=== PATIENT | male | born 1975 | race Caucasian/White ===

== ENCOUNTER → 2017-05-12 | Outpatient (CLI) | payer BC, OTHER ==
--- NOTE | 2017-05-12 11:46 | RADIOLOGY REPORT (SQ) ---
EXAM DESCRIPTION: BARIUM SWALLOW ESOPHAGUS COMPLETED DATE/TIME: 05/12/2017 9:31 am REASON FOR STUDY: DYSPHAGIA R13.12 DYSPHAGIA, OROPHARYNGEAL PHASE COMPARISON: None. TECHNIQUE: Under fluoroscopic guidance, patient ingested effervescent granules followed by thick and thin barium. Fluoroscopic spot images and routine radiographic images acquired and stored on PACS. 12 MM BARIUM TABLET GIVEN: Yes. No significant delay in passage. LIMITATIONS: None. FLUOROSCOPY TIME: FLUORO TIME: 1 minutes 17 seconds 5 series of digital images saved to PACS. FINDINGS: NEUROMUSCULAR COORDINATION OF SWALLOW: Normal. No aspiration. ESOPHAGEAL MOTILITY: Normal peristalsis. No esophageal spasm. ESOPHAGEAL MUCOSA: Very mild distal esophageal mucosal irregularity. Distal esophagitis for Gonzalez' s esophagus could not be excluded. GASTRO-ESOPHAGEAL JUNCTION: There is a small sliding hiatal hernia. Early Schatzki's ring formation. This did not impede passage of the 12 mm barium tablet. There was unprovoked gastroesophageal refl ux to the cervical esophagus NON-GI TRACT STRUCTURES: No significant finding. OTHER: No other significant finding. IMPRESSION: Small hiatal hernia with unprovoked gastroesophageal reflux to the cervical esophagus. No distal esophageal stricture. Mild distal esophageal mucosal irregularity COMMENT: Quality ID [id number]: Final reports for procedures using fluoroscopy that document radiation exp osure indices, or exposure time and number of fluorographic images (if radiation exposure indices are not available) TECHNICAL DOCUMENTATION: JOB ID: [id number] [employer]- All Rights Reserved
== END ==
LOC: RAD 09:05
PROVIDERS: ATTEND Family Medicine
DX: K21.9 Gastro-esophageal reflux disease without esophagitis (principal); K44.9 Diaphragmatic hernia without obstruction or gangrene; R13.12 Dysphagia, oropharyngeal phase
CPT/HCPCS: 74220

== ENCOUNTER → 2020-02-21 | Outpatient (CLI) | payer OTHER ==
[2020-02-21 12:33] LABS: ABSOLUTE EOSINOPHILS # (AUTO) 0.1 10^3/uL (0.0-0.6); ABSOLUTE MONOCYTES (AUTO) 0.7 10^3/uL (0.1-1.4); ABSOLUTE NEUT (AUTO) 7.5 10^3/uL (1.7-8.2); BASOPHILS % (AUTO) 0.3 % (0-2); EOSINOPHILS % (AUTO) 0.9 % (0-6); HEMATOCRIT 36.8 % (37.9-51.0); HEMOGLOBIN 12.6 g/dL (13.5-17.0); LYMPHOCYTES % (AUTO) 19.3 % (13-45); MEAN CORPUSCULAR HEMOGLOBIN 28.7 pg (27.0-33.4); MEAN CORPUSCULAR HGB CONC 34.4 g/dL (32.0-36.0); MEAN CORPUSCULAR VOLUME 83 fl (80-97); MONOCYTES % (AUTO) 6.5 % (3-13); PLATELET COUNT 170 10^3/uL (150-450); RED BLOOD COUNT 4.41 10^6/uL (4.35-5.55); RED CELL DISTRIBUTION WIDTH 14.9 % (11.5-14.0); TOTAL CELLS COUNTED % (AUTO) 100 %; WHITE BLOOD COUNT 10.3 10^3/uL (4.0-10.5)
[2020-02-21 12:54] LABS: ALBUMIN 4.3 g/dL (3.5-5.0); ALKALINE PHOSPHATASE 54 U/L (38-126); ANION GAP 7 (5-19); ASPARTATE AMINO TRANSFERASE 22 U/L (17-59); BILIRUBIN,TOTAL 0.7 mg/dL (0.2-1.3); BLOOD UREA NITROGEN 29 mg/dL (7-20); CALCIUM 8.8 mg/dL (8.4-10.2); CARBON DIOXIDE 25 mmol/L (22-30); CHLORIDE 99 mmol/L (98-107); GLUCOSE 101 mg/dL (75-110); POTASSIUM 4.3 mmol/L (3.6-5.0); TOTAL PROTEIN 6.6 g/dL (6.3-8.2)
== END ==
LOC: OD 11:25
PROVIDERS: ATTEND Family Medicine
DX: I10 Essential (primary) hypertension (principal); K92.1 Melena
CPT/HCPCS: 36415; 80053; 85025

== ENCOUNTER 2020-03-17 03:09 | Emergency (ER) | payer OTHER ==
--- NOTE | 2020-03-17 03:33 | ER Document Report ---
ED General Pain - General Chief Complaint: Anemia Stated Complaint: BODY ACHES Time Seen by Provider: 03/17/20 03:26 Primary Care Provider: LADY CASTRO MD [Primary Care Provider] - Follow up as needed Mode of Arrival: Ambulatory Information source: Patient Notes: 03/17/20 03:17 - ED Nursing Note by TATUM CONNER Num: [id number] : 1975 Patient Age: 44 3 wks ago pt had salmonella and is still tired, fatigued. no fever/chills. pt is anemic. my notes 44-year-old male arrives by POV after having 3 weeks of weakness. 3 weeks ago he ate some garnish [employer] Fresh lettuce from [email or web address] that had Salmonella warnings with later recall and began to have abdominal cramps with dark and bloody stools x 4 days with hematemesis vomiting and his H&H went from a high level to 8 within [address] Castro for this. 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 He reports when he tries to walk more than 10 feet he becomes short of breath. He also has been having more headaches. He also has been complaining of left trapezial pain pointing to this area as well as neck and left shoulder pain and multiple joint aches. He has never had any chlamydia or Lauren's syndrome in the past. TRAVEL OUTSIDE OF THE [place] IN LAST 30 DAYS: No - HPI Onset: Other - x 3 weeks Onset/Duration: Gradual, Persistent, Worse Quality of pain: Achy Severity: Moderate Pain Level: 3 Context: New onset, Joint pain, Recent illness - Related Data Allergies/Adverse Reactions: No Known Allergies Allergy (Verified 03/17/20 03:38) Home Medications: HCTZ/lisinopril, omeprazole, iron Past Medical History - General Information source: Patient - Social History Smoking Status: Never Smoker Cigarette use (# per day): No Chew tobacco use (# tins/day): No Smoking Education Provided: No Frequency of alcohol use: Occasional Drug Abuse: None Lives with: Family Family History: Reviewed & Not Pertinent Patient has suicidal ideation: No Patient has homicidal ideation: No Review of Systems - Review of Systems Constitutional: See HPI, Malaise, Weakness, Recent illness EENT: No symptoms reported Cardiovascular: No symptoms reported Respiratory: No symptoms reported Gastrointestinal: See HPI, Abdominal pain Genitourinary: No symptoms reported Male Genitourinary: No symptoms reported Musculoskeletal: See HPI, Back pain, Joint pain Skin: No symptoms reported Hematologic/Lymphatic: No symptoms reported Physical Exam - Vital signs Vitals: Temp Pulse Resp BP Pulse Ox 98.1 F 72 16 142/84 H 99 03/17/20 03:21 03/17/20 03:21 03/17/20 03:21 03/17/20 03:21 03/17/20 03:21 Interpretation: Normal - HEENT Head: Normocephalic, Atraumatic Eyes: Normal Pupils: PERRL Pharynx: Normal Neck: Normal - Respiratory Respiratory status: No respiratory distress Chest status: Nontender Breath sounds: Normal Chest palpation: Normal - Cardiovascular Rhythm: Regular Heart sounds: Normal auscultation Murmur: No - Abdominal Inspection: Normal Distension: No distension Bowel sounds: Normal Tenderness: Nontender Organomegaly: Splenomegaly - Rectal Prostate: Other - deferred - Genitourinary Scrotum: Other - deferred - Back Back: Tender - LS area - Extremities General upper extremity: Normal inspection - Neurological Neuro grossly intact: Yes Cognition: Normal Orientation: AAOx4 Shena Coma Scale Eye Opening: Spontaneous Shena Coma Scale Verbal: Oriented [place] Coma Scale Motor: Obeys Commands [place] Coma Scale Total: 15 Speech: Normal Motor strength normal: LUE, RUE, LLE, RLE Sensory: Normal - Psychological Associated symptoms: Normal affect - Skin Skin Temperature: Warm Skin Moisture: Dry Course - Vital Signs Vital signs: Temp Pulse Resp BP Pulse Ox 98.1 F 72 16 142/84 H 99 03/17/20 03:21 03/17/20 03:21 03/17/20 03:21 03/17/20 03:21 03/17/20 03:21 - Laboratory Result Diagrams: 03/17/20 04:42 03/17/20 03:37 Laboratory results interpreted by me: 03/17/20 03/17/20 03:37 04:42 RBC 3.66 L Hgb 10.6 L Hct 31.7 L RDW 18.2 H Plt Count 131 L Monocytes % (Manual) 2 L Basophils % (Manual) 5 H Abs Basophils (Manual) 0.3 H Sodium 134.5 L BUN 21 H Discharge - Discharge Clinical Impression: Splenomegaly, Reactive arthritis, s/p gi bleed, Solitary pulmonary nodule on lung CT Joint pain Qualifiers: Joint pain location: hip Laterality: bilateral Qualified Code(s): M25.551 - Pain in right hip; M25.552 - Pain in left hip Condition: Good Disposition: HOME, SELF-CARE Additional Instructions: Follow-up with hematology oncology Dr. Pena return to ER as needed take medicines as directed encourage fluids; Prescriptions: Misoprostol [Cytotec 0.2 mg Tablet] 200 mcg PO DAILY #10 tablet Levofloxacin [Levaquin 500 mg Tablet] 500 mg PO DAILY #10 tablet Etodolac [Lodine] 400 mg PO DAILY #7 tablet Referrals: LADY CASTRO MD [Primary Care Provider] - Follow up as needed
[2020-03-17] MEDS ORDERED: NORMAL SALINE 1000 ML 1,000 ML IV ONE (03:35)
[2020-03-17 03:56] LABS: PARTIAL THROMBOPLASTIN TIME 28.3 SEC (23.5-35.8); PROTHROMBIN TIME 13.4 SEC (11.4-15.4)
[2020-03-17 04:09] LABS: ALBUMIN 4.3 g/dL (3.5-5.0); ALKALINE PHOSPHATASE 53 U/L (38-126); ANION GAP 10 (5-19); ASPARTATE AMINO TRANSFERASE 28 U/L (17-59); BILIRUBIN,TOTAL 0.4 mg/dL (0.2-1.3); BLOOD UREA NITROGEN 21 mg/dL (7-20); CALCIUM 8.8 mg/dL (8.4-10.2); CARBON DIOXIDE 24 mmol/L (22-30); CHLORIDE 101 mmol/L (98-107); CREATINE KINASE 61 U/L (55-170); GLUCOSE 101 mg/dL (75-110); POTASSIUM 4.4 mmol/L (3.6-5.0); TOTAL PROTEIN 6.8 g/dL (6.3-8.2)
--- NOTE | 2020-03-17 04:15 | RADIOLOGY REPORT (SQ) ---
EXAM DESCRIPTION: XR CHEST 1 VIEW COMPLETED DATE/TME: 03/17/2020 03:32 CLINICAL HISTORY: 44 years, Male, gi bleed abd pain COMPARISON: None. NUMBER OF VIEWS: 1 TECHNIQUE: Portable chest LIMITATIONS: None. FINDINGS: The heart size is normal. Elevation of the right hemidiaphragm. Lungs are clear. No pneumothorax IMPRESSION: Negative chest copyright 2011 [employer]- All Rights Reserved
[2020-03-17 04:59] LABS: HEMATOCRIT 31.7 % (37.9-51.0); HEMOGLOBIN 10.6 g/dL (13.5-17.0); MEAN CORPUSCULAR HEMOGLOBIN 28.8 pg (27.0-33.4); MEAN CORPUSCULAR HGB CONC 33.3 g/dL (32.0-36.0); PLATELET COUNT 131 10^3/uL (150-450); RED BLOOD COUNT 3.66 10^6/uL (4.35-5.55); RED CELL DISTRIBUTION WIDTH 18.2 % (11.5-14.0); WHITE BLOOD COUNT 6.1 10^3/uL (4.0-10.5)
[2020-03-17] MEDS ORDERED: LEVOFLOXACIN 750 MG/D5W RTU 750 MG/150 ML RTUPB IV ONE (05:02)
--- NOTE | 2020-03-17 05:14 | RADIOLOGY REPORT (SQ) ---
EXAM DESCRIPTION: CT ABDOMEN PELVIS WITH IV CONTRAST COMPLETED DATE/TME: 03/17/2020 03:30 CLINICAL HISTORY: abd back pain gi bleed COMPARISON: None Available. TECHNIQUE: CT of the abdomen and pelvis performed following IV administration of 91 mL Omnipaque 350. FINDINGS: Lung Bases: There is a 5 mm solid pulmonary nodule in the right lower lobe best seen on image #22, series #3. Bones: No destructive bone lesions identified. Abdomen: Liver: The liver has normal size and density. No intrahepatic biliary dilatation. Gallbladder: No calcified gallstones. Spleen, Pancreas, and Adrenal Glands: Splenomegaly. Pancreas and adrenal glands are unremarkable. Kidneys: No hydronephrosis or obstructing calculus. Vasculature: The aorta and IVC have normal caliber and position. The portal vein is patent. The proximal visceral and renal arteries are patent. Stomach: The stomach and duodenum have normal course. Other: No free intraperitoneal air. No free fluid or lymphadenopathy. Pelvis: Bladder: Urinary bladder is unremarkable. Bowel: No dilated loops of large or small bowel. Appendix: Normal appendix. Pelvis: Prostate is not enlarged. Small bilateral fat-containing inguinal hernias. IMPRESSION: 1. No acute inflammatory or obstructive process identified. 2. Splenomegaly. 3. 5.0 mm solid pulmonary nodule detected on incomplete chest CT. No routine follow-up imaging is recommended. These guidelines do not apply to immunocompromised patients and patients with cancer. Follow up in patients with significant comorbidities as clinically warranted. For lung cancer screening, adhere to Lung-RADS guidelines. Reference: Radiology. 2017; 284(1):228-43. This exam was performed according to our departmental dose-optimization program, which includes automated exposure control, adjustment of the mA and/or kV according to patient size and/or use of iterative reconstruction technique.
[2020-03-17 05:18] LABS: MEAN CORPUSCULAR VOLUME 87 fl (80-97)
[2020-03-17 05:21] LABS: ABSOLUTE LYMPHOCYTES# (MANUAL) 1.4 10^3/uL (0.5-4.7); ABSOLUTE MONOCYTES # (MANUAL) 0.1 10^3/uL (0.1-1.4); BASOPHILS % (MANUAL) 5 % (0-2); EOSINOPHILS % (MANUAL) 0 % (0-6); LYMPHOCYTES % (MANUAL) 23 % (13-45); MONOCYTES % (MANUAL) 2 % (3-13); NUCLEATED RED BLOOD CELLS 1 /100 WBC (0); SEGMENTED NEUTROPHILS % (MAN) 70 % (42-78); TOTAL CELLS COUNTED 100
[2020-03-17 05:22] LABS: ANISOCYTOSIS 1+; OVALOCYTES 1+; POIKILOCYTOSIS 1+; TEAR DROP CELLS 1+; TOXIC GRANULATION SLIGHT
[2020-03-17 05:23] LABS: PLATELET COMMENT ADEQUATE
[2020-03-17 06:15] VITALS: BP 136/85
[2020-03-17] MEDS ORDERED: LEVOFLOXACIN 500 MG/D5W RTU 500 MG/100 ML RTUPB IV SCH (10:00)
== END 2020-03-17 06:39 | disposition home or self-care (01) ==
LOC: ER 03:09
DX: M02.30 Reiter's disease, unspecified site (principal); R91.1 Solitary pulmonary nodule; M25.551 Pain in right hip; M25.552 Pain in left hip; R16.1 Splenomegaly, not elsewhere classified; D64.9 Anemia, unspecified; R53.1 Weakness; R53.83 Other fatigue; M54.5 Low back pain; R06.02 Shortness of breath; R51 Headache; M79.18 Myalgia, other site; M54.2 Cervicalgia; M25.512 Pain in left shoulder; Z79.899 Other long term (current) drug therapy; R53.81 Other malaise; R10.9 Unspecified abdominal pain; Z87.19 Personal history of other diseases of the digestive system
CPT/HCPCS: 99285; 96361; 96374; 96375; 36415; 87040; 82550; 83605; 84443; 85025; 85610; 85730; 86431; 86308; 80053; 84484; 71045; 74177; J7030; J1956

== ENCOUNTER 2020-03-23 16:33 | Emergency (ER) | payer OTHER ==
[2020-03-23] MEDS ORDERED: NORMAL SALINE 1000 ML 1,000 ML IV ONE (17:00)
--- NOTE | 2020-03-23 17:05 | ER Document Report ---
ED General - General Stated Complaint: SYNCOPE Primary Care Provider: LADY PLATA MD [Primary Care Provider] - Follow up as needed Mode of Arrival: Ambulatory Information source: Patient Notes: 44-year-old male arrives by POV with his Tamy with chief complaint of myalgias and syncope while at work today. Patient's hemoglobin is 13 today. A few weeks ago it was an 8 after he had bloody diarrhea after consuming farm fresh lettuce from [employer] associated with Salmonella. He saw his personal doctor Dr. Plata and he was placed on iron by mouth. He has been suffering from diffuse myalgias and difficulty walking. Patient is diaphoretic upon arrival to waiting room. Patient reports when he arises from sitting position it is very difficult for him to begin walking and has some numbness of his feet. He has never had any [place] in the past. He no longer has headaches like he had a few weeks ago but continues to have arthralgias. I discussed this case with Dr. Plata at 1928 and he advises following up in the office. Also advises waiting for the coronavirus test to result as well. TRAVEL OUTSIDE OF THE [place] IN LAST 30 DAYS: No - HPI Onset: Just prior to arrival - Related Data Allergies/Adverse Reactions: No Known Allergies Allergy (Verified 03/23/20 19:22) Past Medical History - General Information source: Patient, Relative - - Social History Smoking Status: Never Smoker Cigarette use (# per day): No Chew tobacco use (# tins/day): No Smoking Education Provided: No Frequency of alcohol use: None Drug Abuse: None Lives with: Family Family History: Reviewed & Not Pertinent Patient has suicidal ideation: No Patient has homicidal ideation: No - Past Medical History Cardiac Medical History: Reports: Hx Hypertension Review of Systems - Review of Systems Constitutional: See HPI, Diaphoresis, Malaise, Weakness, Recent illness EENT: No symptoms reported Cardiovascular: See HPI, Palpitations Respiratory: No symptoms reported Gastrointestinal: No symptoms reported Genitourinary: No symptoms reported Male Genitourinary: No symptoms reported Musculoskeletal: No symptoms reported Skin: No symptoms reported Hematologic/Lymphatic: No symptoms reported Neurological/Psychological: No symptoms reported Physical Exam - Vital signs Vitals: Temp Pulse Resp BP Pulse Ox 98.2 F 106 H 20 112/69 100 03/23/20 16:39 03/23/20 16:39 03/23/20 16:39 03/23/20 16:39 03/23/20 16:39 Interpretation: Tachycardic - HEENT Head: Normocephalic, Atraumatic Eyes: Normal Pupils: PERRL Pharynx: Normal Neck: Normal - Respiratory Respiratory status: No respiratory distress Chest status: Nontender Breath sounds: Normal Chest palpation: Normal - Cardiovascular Rhythm: Tachycardia Heart sounds: Normal auscultation Murmur: No - Abdominal Inspection: Normal Distension: No distension Bowel sounds: Normal Tenderness: Nontender Organomegaly: No organomegaly - Rectal Prostate: Other - deferred - Genitourinary Scrotum: Other - deferred - Back Back: Normal - Extremities General upper extremity: Normal inspection General lower extremity: Normal inspection - Neurological Neuro grossly intact: Yes Cognition: Normal Orientation: AAOx4 Shena Coma Scale Eye Opening: Spontaneous [place] Coma Scale Verbal: Oriented [place] Coma Scale Motor: Obeys Commands Shena Coma Scale Total: 15 Speech: Normal Motor strength normal: LUE, RUE, LLE, RLE Additional motor exam normals: Weakness - of lower legs pain in macario thighs hamstring area Sensory: Normal Knee - Reflex grade: 0 = Absent - Psychological Associated symptoms: Anxious - Skin Skin Temperature: Warm Skin Moisture: Diaphoretic Course - Vital Signs Vital signs: Temp Pulse Resp BP Pulse Ox 98.2 F 106 H 20 112/69 100 03/23/20 16:39 03/23/20 16:39 03/23/20 16:39 03/23/20 16:39 03/23/20 16:39 - Laboratory Result Diagrams: 03/23/20 17:25 03/23/20 17:25 Laboratory results interpreted by me: 03/23/20 03/23/20 17:25 17:25 Hgb 13.2 L RDW 17.5 H Reticulocyte # 0.153 H Retic Count (auto) 3.31 H Sodium 135.1 L BUN 25 H Iron 48.8 L Vitamin B12 960.0 H Critical Care Note - Critical Care Note Comments: I advised patient of his laboratory reports; and of his ferritin level and reticulocyte count. He has a 13 hemoglobin. I also spoke with Dr. Plata about this patient is patient and he advises he wants to see him in office this week. Discharge - Discharge Clinical Impression: Weakness, Knee reflex reduced, Splenomegaly, Reactive arthritis, Iron deficiency Joint pain Qualifiers: Joint pain location: hip Laterality: bilateral Qualified Code(s): M25.551 - Pain in right hip Disposition: HOME, SELF-CARE Additional Instructions: Follow-up with Dr. Plata this week; wear a facemask to his office; a coronavirus has been done and will need self quarantine until this resulted. Return to ER if symptoms persist. Your hemoglobin level is now at 13 with positive reticulocyte count of 3. You have a 48 iron level Prescriptions: Tramadol HCl [Ultram 50 mg Tablet] 50 mg PO Q4HP PRN #12 tab PRN Reason: Forms: Return to Work Referrals: LADY PLATA MD [Primary Care Provider] - Follow up as needed
[2020-03-23 17:44] LABS: ABSOLUTE BASOPHILS # (AUTO) 0.1 10^3/uL (0.0-0.2); ABSOLUTE EOSINOPHILS # (AUTO) 0.3 10^3/uL (0.0-0.6); ABSOLUTE LYMPHOCYTES (AUTO) 1.4 10^3/uL (0.5-4.7); ABSOLUTE MONOCYTES (AUTO) 0.6 10^3/uL (0.1-1.4); ABSOLUTE NEUT (AUTO) 6.4 10^3/uL (1.7-8.2); ABSOLUTE RETICS # 0.153 10^6/uL (0.028-0.122); BASOPHILS % (AUTO) 0.7 % (0-2); HEMATOCRIT 40.3 % (37.9-51.0); HEMOGLOBIN 13.2 g/dL (13.5-17.0); LYMPHOCYTES % (AUTO) 16.2 % (13-45); MEAN CORPUSCULAR HEMOGLOBIN 28.5 pg (27.0-33.4); MEAN CORPUSCULAR HGB CONC 32.7 g/dL (32.0-36.0); MEAN CORPUSCULAR VOLUME 87 fl (80-97); MONOCYTES % (AUTO) 7.2 % (3-13); PLATELET COUNT 207 10^3/uL (150-450); RED BLOOD COUNT 4.62 10^6/uL (4.35-5.55); RED CELL DISTRIBUTION WIDTH 17.5 % (11.5-14.0); RETICULOCYTE COUNT (AUTO) 3.31 % (0.66-2.85); SEGMENTED NEUTROPHILS % (AUTO) 72.9 % (42-78); TOTAL CELLS COUNTED % (AUTO) 100 %; WHITE BLOOD COUNT 8.8 10^3/uL (4.0-10.5)
[2020-03-23 18:03] LABS: ALBUMIN 4.6 g/dL (3.5-5.0); ALKALINE PHOSPHATASE 53 U/L (38-126); ANION GAP 11 (5-19); ASPARTATE AMINO TRANSFERASE 25 U/L (17-59); BILIRUBIN,TOTAL 0.4 mg/dL (0.2-1.3); BLOOD UREA NITROGEN 25 mg/dL (7-20); CALCIUM 9.4 mg/dL (8.4-10.2); CARBON DIOXIDE 22 mmol/L (22-30); CHLORIDE 102 mmol/L (98-107); CREATINE KINASE 142 U/L (55-170); GLUCOSE 107 mg/dL (75-110); IRON(TIBC) 48.8 ug/dL (49-181); TOTAL PROTEIN 7.2 g/dL (6.3-8.2)
[2020-03-23 18:22] LABS: ERYTHROCYTE SEDIMENTATION RATE 4 mm/hr (0-15)
[2020-03-23] MEDS ORDERED: CYANOCOBALAMIN (VITAMIN B-12) INJ 1000 MCG/1 ML VIAL IM ONE ×2 (18:29→21:30)
[2020-03-23] MEDS ORDERED: IRON DEXTRAN INJ 100 MG/2 ML VIAL IV ONE (18:48)
[2020-03-23] MEDS ORDERED: TRAMADOL HCL 50 MG TABLET PO ONE (19:50)
[2020-03-23 20:15] LABS: APPEARANCE,URINE CLEAR; BILIRUBIN,URINE NEGATIVE (NEGATIVE); COLOR,URINE YELLOW; GLUCOSE, URINE NEGATIVE (NEGATIVE); KETONES,URINE NEGATIVE (NEGATIVE); LEUKOCYTE ESTERASE,URINE NEGATIVE (NEGATIVE); NITRITE,URINE NEGATIVE (NEGATIVE); PROTEIN,URINE NEGATIVE (NEGATIVE); URINE SPECIFIC GRAVITY 1.023; UROBILINOGEN,URINE NEGATIVE mg/dL (<2.0)
[2020-03-23] MEDS ORDERED: IRON SUCROSE COMPLEX INJ/PF 100 MG/5 ML SDV IV ONE ×2 (20:30→21:30)
[2020-03-24 00:12] VITALS: BP 112/75
[2020-03-26 07:20] LABS: PARVOVIRUS B19 IGG AB 2.3 index (0.0-0.8); PARVOVIRUS B19 IGM AB 0.1 index (0.0-0.8)
[2020-03-26 15:37] LABS: E. CHAFFEENSIS IGG TITER Negative (Neg:<1:64)
[2020-03-26 16:37] LABS: Q FEVER PHASE I AB Negative (Neg:<1:16); ROCKY MTN SPOTTED FEV IGG EIA Positive (Negative)
[2020-03-26 22:46] LABS: E. CHAFFEENSIS IGM TITER Negative (Neg:<1:20)
[2020-03-27 08:48] LABS: Q FEVER PHASE II AB Negative (Neg:<1:16); ROCKY MTN SPOTTED FEV IGG IFA <1:64 (Neg <1:64)
== END 2020-03-24 00:39 | disposition home or self-care (01) ==
LOC: ER 16:33
DX: R16.1 Splenomegaly, not elsewhere classified (principal); M02.30 Reiter's disease, unspecified site; E61.1 Iron deficiency; M25.551 Pain in right hip; R55 Syncope and collapse; M79.10 Myalgia, unspecified site; R26.2 Difficulty in walking, not elsewhere classified; R61 Generalized hyperhidrosis; R53.81 Other malaise; R53.1 Weakness; R00.2 Palpitations
CPT/HCPCS: 99284; 96361; 96374; 36415; 86157; 82607; 82550; 82728; 82746; 83540; 83550; 83605; 83735; 85025; 85652; 85045; 80053; 81001; 84484; 81291; 86747 ×3; 83519 ×3; 82784; 86757; 82330; J1756; J7030